=== PATIENT | female | born 1995 | race Caucasian/White ===

== ENCOUNTER → 2017-07-19 | Outpatient (REF) | payer OTHER ==
[~2017-07-19] MED LIST: ACET500C PO; IBUP200C10 PO; IBUP80TA PO; TYLE167L PO; VITAPRTA PO
== END ==
LOC: M LAB REF 16:45
PROVIDERS: ATTEND Advanced Practice Midwife
DX: Z11.3 Encounter for screening for infections with a predominantly sexual mode of transmission (principal)

== ENCOUNTER → 2017-09-05 | Outpatient (REF) | payer OTHER, MEDICAID | LOC: M LAB REF 19:32 | PROVIDERS: ATTEND Physician Assistant | DX: J02.9 Acute pharyngitis, unspecified (principal) ==

== ENCOUNTER → 2017-10-05 | Outpatient (CLI) | payer OTHER | LOC: M RAD 13:41 | DX: R42 Dizziness and giddiness (principal) | CPT/HCPCS: 70551 ==

== ENCOUNTER 2017-10-23 10:45 | Emergency (ER) | payer OTHER | END 2017-10-23 13:38 | disposition home or self-care (01) | LOC: M ED 10:45 | DX: M62.48 Contracture of muscle, other site (principal); R73.09 Other abnormal glucose; J45.909 Unspecified asthma, uncomplicated; Z79.3 Long term (current) use of hormonal contraceptives | CPT/HCPCS: 76775 ==

== ENCOUNTER → 2017-10-26 | Outpatient (CLI) | payer OTHER | LOC: M RAD 16:18 | DX: R10.30 Lower abdominal pain, unspecified (principal) | CPT/HCPCS: 76856 ==

== ENCOUNTER → 2017-12-30 | Outpatient (REF) | payer OTHER, MEDICAID ==
[2017-12-30 12:08] LABS: HEMATOCRIT 44.6 % (36.0-47.0); HEMOGLOBIN 14.5 g/dl (12.0-15.5); MEAN CORPUSCULAR HEMOGLOBIN 29.2 pg (27.0-33.0); MEAN CORPUSCULAR HGB CONC 32.5 g/dl (32.0-36.5); MEAN CORPUSCULAR VOLUME 89.9 fl (80.0-96.0); PLATELET COUNT, AUTOMATED 303 10^3/uL (150-450); RED BLOOD COUNT 4.96 10^6/uL (4.00-5.40); RED CELL DISTRIBUTION WIDTH 12.4 % (11.5-14.5); WHITE BLOOD COUNT 8.1 10^3/uL (4.0-10.0)
[2017-12-30 12:33] LABS: FREE T4 1.17 NG/DL (0.76-1.46); THYROID STIMULATING HORMONE 0.835 uIU/ML (0.358-3.740)
== END ==
LOC: M SFHCCLAY 08:58
DX: R26.89 Other abnormalities of gait and mobility (principal); R53.83 Other fatigue

== ENCOUNTER → 2018-05-18 | Outpatient (REF) | payer OTHER, MEDICAID ==
[2018-05-21 00:06] LABS: Lyme Disease IgG/IgM Antibodie <0.91 ISR (0.00-0.90); Lyme Disease IgM Ab Quantitati <0.80 index (0.00-0.79)
== END ==
LOC: M SFHCCLAY 12:14
DX: R26.89 Other abnormalities of gait and mobility (principal); Z20.9 Contact with and (suspected) exposure to unspecified communicable disease
CPT/HCPCS: 86617

== ENCOUNTER → 2018-06-20 | Outpatient (REF) | payer OTHER ==
[2018-06-20 11:46] LABS: HEMATOCRIT 46.8 % (36.0-47.0); HEMOGLOBIN 15.2 g/dl (12.0-15.5); MEAN CORPUSCULAR HEMOGLOBIN 29.9 pg (27.0-33.0); MEAN CORPUSCULAR HGB CONC 32.5 g/dl (32.0-36.5); MEAN CORPUSCULAR VOLUME 91.9 fl (80.0-96.0); PLATELET COUNT, AUTOMATED 350 10^3/uL (150-450); RED BLOOD COUNT 5.09 10^6/uL (4.00-5.40); WHITE BLOOD COUNT 12.5 10^3/uL (4.0-10.0)
[2018-06-20 11:50] LABS: POSITIVE DIFF POS FLAG
[2018-06-20 11:51] LABS: ADD MANUAL DIFFER YES; DIFF SLIDE NUMBER 252
[2018-06-20 12:09] LABS: ATYPICAL LYMPH 1 % (0-5); EOSINOPHILS 3 % (0-5); LYMPHOCYTES 33 % (16-52); MONOCYTES 8 % (0-8); NEUTROPHILS 55 % (35-75)
[2018-06-20 12:10] LABS: PLATELET ESTIMATE NORMAL (NORMAL)
[2018-06-20 12:15] LABS: ALBUMIN 4.2 GM/DL (3.2-5.2); ALBUMIN/GLOBULIN RATIO 1.08 (1.00-1.93); ALKALINE PHOSPHATASE 65 U/L (45-117); ALT/SGPT 22 U/L (12-78); ANION GAP 10 MEQ/L (8-16); AST/SGOT 10 U/L (7-37); BILIRUBIN,TOTAL 0.9 MG/DL (0.2-1.0); BLOOD UREA NITROGEN 13 MG/DL (7-18); CALCIUM LEVEL 9.1 MG/DL (8.5-10.1); CARBON DIOXIDE LEVEL 25 MEQ/L (21-32); CHLORIDE LEVEL 106 MEQ/L (98-107); CREATININE FOR GFR 0.94 MG/DL (0.55-1.30); GLOMERULAR FILTRATION RATE > 60.0 (>60); GLUCOSE, FASTING 86 MG/DL (70-100); RHEUMATOID FACTOR QUANT < 10.0 IU/ML (<15.0); SODIUM LEVEL 141 MEQ/L (136-145); THYROID STIMULATING HORMONE 0.668 uIU/ML (0.358-3.740); TOTAL PROTEIN 8.1 GM/DL (6.4-8.2)
[2018-06-20 12:24] LABS: ERYTHROCYTE SEDIMENTATION RATE 2 mm/hr (0-20)
[2018-06-20 12:44] LABS: TOTAL 25(OH) VITAMIN D 33.1 NG/ML (30.0-100.0)
[2018-06-20 12:45] LABS: FOLATE 22.1 NG/ML (>5.4)
[2018-06-22 11:29] LABS: ALBUMIN 4.86 GM/DL (3.29-5.55); ALPHA-1-GLOBULIN % 4.2 % (2.9-4.9); ALPHA-1-GLOBULINS 0.34 GM/DL (0.17-0.41); ALPHA-2-GLOBULINS % 10.8 % (7.1-11.8); BETA-1-GLOBULINS % 8.6 % (4.7-7.2); BETA-2-GLOBULINS % 5.1 % (3.2-6.5); GAMMA GLOBULIN % 11.3 % (11.1-18.8)
[2018-06-22 11:30] LABS: ALPHA-2-GLOBULINS 0.87 GM/DL (0.42-0.99); BETA-2-GLOBULINS 0.41 GM/DL (0.19-0.55); GAMMA GLOBULINS 0.92 GM/DL (0.65-1.58)
== END ==
LOC: M LABDRAWC 11:21
DX: R20.0 Anesthesia of skin (principal); G31.84 Mild cognitive impairment of uncertain or unknown etiology
CPT/HCPCS: 82746

== ENCOUNTER → 2018-08-28 | Outpatient (REF) | payer OTHER ==
[2018-08-28 14:40] LABS: CHLAMYDIA DNA AMPLIFICATION NEGATIVE (NEGATIVE); GC DNA AMPLIFICATION NEGATIVE (NEGATIVE)
== END ==
LOC: M LAB REF 12:43
DX: Z11.3 Encounter for screening for infections with a predominantly sexual mode of transmission (principal)
CPT/HCPCS: 87591

== ENCOUNTER → 2018-08-28 | Outpatient (REF) | payer OTHER | LOC: M LAB REF 19:18 | DX: Z12.4 Encounter for screening for malignant neoplasm of cervix (principal) ==

== ENCOUNTER → 2019-07-25 | Outpatient (REF) | payer OTHER, MEDICAID ==
[~2019-07-25] MED LIST changes: -IBUP200C10 PO; +IBUP200C25 PO; +JULE1TAB PO
[2019-07-25 20:11] LABS: CHLAMYDIA DNA AMPLIFICATION NEGATIVE (NEGATIVE); GC DNA AMPLIFICATION NEGATIVE (NEGATIVE)
== END ==
LOC: M LAB REF 17:03
PROVIDERS: ATTEND Advanced Practice Midwife
DX: R10.2 Pelvic and perineal pain (principal)

== ENCOUNTER → 2019-07-31 | Outpatient (CLI) | payer OTHER ==
--- NOTE | 2019-07-31 12:03 | REP ---
Clinical: Pelvic pain . Technique: Transabdominal pelvic ultrasound followed by transvaginal examination for better evaluation of the endometrium and adnexa with color Doppler evaluation of the ovaries. Findings: Bladder is unremarkable and measures 8.9 x 5.1 x 6.4 cm . Heterogeneous anteverted uterus measures 7.5 x 3.7 x 5.3 cm and a 1.5 cm anterior intramural fibroid is suggested. The endometrial complex measures 3.1 mm thickness. Bilateral ovaries are normal in appearance and vascularity without evidence for torsion. Right ovary measures 1.9 x 1.3 x 2.0 cm ; R I = 0.49 . Left ovary measures 2.2 x 1.6 x 1.3 cm ; R I = 0.57 . No pelvic fluid or adnexal mass lesion . Impression: 1. Heterogeneous anteverted uterus with 1.5 cm anterior intramural fibroid Electronically Signed by Robbi Dos Santos MD 07/31/2019 11:55 A
== END ==
LOC: M RAD 11:10
PROVIDERS: ATTEND Advanced Practice Midwife
DX: R10.2 Pelvic and perineal pain (principal)

== ENCOUNTER → 2019-08-02 | Outpatient (REF) | payer MEDICAID, OTHER ==
[2019-08-02 16:46] LABS: BASO # 0.1 10^3/uL (0.0-0.2); BASO % 0.4 % (0.0-1.0); EOS # 0.1 10^3/uL (0.0-0.5); EOS % 0.9 % (0.0-3.0); HEMATOCRIT 41.5 % (36.0-47.0); HEMOGLOBIN 13.4 g/dl (12.0-15.5); LYMPH # 2.4 10^3/uL (1.5-5.0); MEAN CORPUSCULAR HEMOGLOBIN 29.1 pg (27.0-33.0); MEAN CORPUSCULAR HGB CONC 32.3 g/dl (32.0-36.5); MEAN CORPUSCULAR VOLUME 90.2 fl (80.0-96.0); MONO % 8.4 % (0.0-5.0); NEUTROPHILS # 8.4 10^3/uL (1.5-8.5); NEUTROPHILS % 70.1 % (36.0-66.0); PLATELET COUNT, AUTOMATED 336 10^3/uL (150-450)
== END ==
LOC: M SFHCCLAY 12:27
PROVIDERS: ATTEND Family Medicine
DX: D72.829 Elevated white blood cell count, unspecified (principal)

== ENCOUNTER → 2019-09-04 | Outpatient (CLI) | payer OTHER ==
[2019-09-05 08:02] LABS: HCG, SERUM QUALITATIVE NEGATIVE (NEGATIVE)
[2019-09-05 10:09] LABS: HEPATITIS B SURFACE ANTIGEN NEGATIVE (NEGATIVE)
[2019-09-05 10:28] LABS: HEPATITIS C VIRUS ABY INDEX 0.1 INDEX (<0.8)
[2019-09-05 10:29] LABS: HEPATITIS B CORE ANTIBODY IGM NEGATIVE (NEGATIVE); HIV 1&2 SCREEN CENTAUR NEGATIVE (NEGATIVE)
[2019-09-05 10:30] LABS: HEPATITIS A ANTIBODY IGM NEGATIVE (NEGATIVE)
== END ==
LOC: M PLALAB 10:35
PROVIDERS: ATTEND Advanced Practice Midwife
DX: Z11.3 Encounter for screening for infections with a predominantly sexual mode of transmission (principal)

== ENCOUNTER → 2019-10-12 | Outpatient (REF) | payer OTHER | LOC: M SFHCCLAY 14:37 | PROVIDERS: ATTEND Family Medicine | DX: F41.9 Anxiety disorder, unspecified (principal) ==

== ENCOUNTER → 2019-12-05 | Outpatient (REF) | payer OTHER ==
[2019-12-05 11:37] LABS: BASO # 0.1 10^3/uL (0.0-0.2); BASO % 0.5 % (0.0-1.0); EOS # 0.1 10^3/uL (0.0-0.5); EOS % 0.7 % (0.0-3.0); HEMATOCRIT 45.6 % (36.0-47.0); HEMOGLOBIN 14.6 g/dl (12.0-15.5); LYMPH # 4.2 10^3/uL (1.5-5.0); LYMPH % 34.2 % (24.0-44.0); MEAN CORPUSCULAR HEMOGLOBIN 28.7 pg (27.0-33.0); MEAN CORPUSCULAR VOLUME 89.8 fl (80.0-96.0); MONO # 0.7 10^3/uL (0.0-0.8); MONO % 5.6 % (0.0-5.0); NEUTROPHILS # 7.2 10^3/uL (1.5-8.5); NEUTROPHILS % 58.6 % (36.0-66.0); PLATELET COUNT, AUTOMATED 406 10^3/uL (150-450); RED BLOOD COUNT 5.08 10^6/uL (4.00-5.40); WHITE BLOOD COUNT 12.2 10^3/uL (4.0-10.0)
[2019-12-05 11:54] LABS: ALT/SGPT 18 U/L (12-78); BILIRUBIN,TOTAL 0.5 MG/DL (0.2-1.0); BLOOD UREA NITROGEN 14 MG/DL (7-18); CALCIUM LEVEL 9.3 MG/DL (8.5-10.1); CARBON DIOXIDE LEVEL 26 MEQ/L (21-32); CHLORIDE LEVEL 108 MEQ/L (98-107); CREATININE FOR GFR 0.87 MG/DL (0.55-1.30); GLOMERULAR FILTRATION RATE > 60.0 (>60); GLUCOSE, FASTING 91 MG/DL (70-100); POTASSIUM SERUM 3.8 MEQ/L (3.5-5.1); RHEUMATOID FACTOR QUANT < 10.0 IU/ML (<15.0); SODIUM LEVEL 139 MEQ/L (136-145); TOTAL 25(OH) VITAMIN D 17.6 NG/ML (30.0-100.0); TOTAL PROTEIN 7.6 GM/DL (6.4-8.2)
[2019-12-05 12:18] LABS: ERYTHROCYTE SEDIMENTATION RATE 3 mm/hr (0-20)
[2019-12-07 00:08] LABS: ANTINUCLEAR ANTIBODIES DIRECT Negative (Negative)
== END ==
LOC: M LABDRAWC 11:23
PROVIDERS: ATTEND Psychiatry & Neurology Neurology
DX: R51 Headache (principal)

== ENCOUNTER → 2020-04-11 | Outpatient (CLI) | payer OTHER ==
--- NOTE | 2020-04-11 15:14 | REP ---
REASON: Followup. Prior exam 07/31/2019 showed a 1.5 sized anterior uterine fibroid. Transvesical and transvaginal imaging was obtained. The uterus is unchanged in size, shape, and echo pattern measuring approximately 9.2 x 4 x 5.3 cm. The uterine parenchymal echo pattern is heterogeneous, however, the small anterior fibroid seen on the prior exam is not visualized today. The endometrial echo complex is normal measuring 7 mm in thickness. Both ovaries are normal, the right measures 3.1 x 1.4 x 1.8 cm and the left measures 2.8 x 1.8 x 1.9 cm. IMPRESSION: Normal pelvis ultrasound. Electronically Signed by Nish Perez DO 04/11/2020 04:02 P
== END ==
LOC: M WHC 09:57
PROVIDERS: ATTEND Nurse Practitioner Women's Health
DX: R10.2 Pelvic and perineal pain (principal); D25.9 Leiomyoma of uterus, unspecified

== ENCOUNTER → 2020-06-10 | Outpatient (REF) | payer OTHER ==
[2020-06-10 12:55] LABS: BASO # 0.1 10^3/uL (0.0-0.2); BASO % 0.7 % (0.0-1.0); EOS # 0.2 10^3/uL (0.0-0.5); EOS % 1.5 % (0.0-3.0); HEMATOCRIT 46.7 % (36.0-47.0); LYMPH # 3.3 10^3/uL (1.5-5.0); LYMPH % 28.1 % (24.0-44.0); MEAN CORPUSCULAR HEMOGLOBIN 29.8 pg (27.0-33.0); MEAN CORPUSCULAR HGB CONC 32.1 g/dl (32.0-36.5); MEAN CORPUSCULAR VOLUME 92.7 fl (80.0-96.0); MONO # 0.6 10^3/uL (0.0-0.8); MONO % 5.3 % (0.0-5.0); NEUTROPHILS # 7.6 10^3/uL (1.5-8.5); NEUTROPHILS % 64.1 % (36.0-66.0); PLATELET COUNT, AUTOMATED 371 10^3/uL (150-450); RED BLOOD COUNT 5.04 10^6/uL (4.00-5.40); WHITE BLOOD COUNT 11.9 10^3/uL (4.0-10.0)
[2020-06-10 13:09] LABS: ALT/SGPT 20 U/L (12-78); BILIRUBIN,TOTAL 0.5 MG/DL (0.2-1.0); BLOOD UREA NITROGEN 12 MG/DL (7-18); CALCIUM LEVEL 9.1 MG/DL (8.5-10.1); CARBON DIOXIDE LEVEL 25 MEQ/L (21-32); CHLORIDE LEVEL 107 MEQ/L (98-107); CREATININE FOR GFR 0.85 MG/DL (0.55-1.30); GLOMERULAR FILTRATION RATE > 60.0 (>60); GLUCOSE, FASTING 85 MG/DL (70-100); POTASSIUM SERUM 4.6 MEQ/L (3.5-5.1); SODIUM LEVEL 138 MEQ/L (136-145); THYROID STIMULATING HORMONE 0.895 uIU/ML (0.358-3.740); TOTAL 25(OH) VITAMIN D 17.7 NG/ML (30.0-100.0); TOTAL PROTEIN 7.7 GM/DL (6.4-8.2)
== END ==
LOC: M SFHCCLAY 12:19
PROVIDERS: ATTEND Family Medicine
DX: Z00.00 Encounter for general adult medical examination without abnormal findings (principal); M54.16 Radiculopathy, lumbar region; D72.829 Elevated white blood cell count, unspecified; E55.9 Vitamin D deficiency, unspecified

== ENCOUNTER → 2020-07-09 | Outpatient (REF) | payer OTHER ==
[2020-07-09 13:13] LABS: BASO # 0.1 10^3/uL (0.0-0.2); BASO % 0.5 % (0.0-1.0); EOS # 0.2 10^3/uL (0.0-0.5); EOS % 1.7 % (0.0-3.0); HEMOGLOBIN 15.1 g/dl (12.0-15.5); LYMPH % 33.1 % (24.0-44.0); MEAN CORPUSCULAR HEMOGLOBIN 29.8 pg (27.0-33.0); MEAN CORPUSCULAR HGB CONC 32.1 g/dl (32.0-36.5); MEAN CORPUSCULAR VOLUME 92.9 fl (80.0-96.0); MONO # 0.8 10^3/uL (0.0-0.8); MONO % 6.5 % (0.0-5.0); NEUTROPHILS # 6.9 10^3/uL (1.5-8.5); NEUTROPHILS % 57.9 % (36.0-66.0); PLATELET COUNT, AUTOMATED 387 10^3/uL (150-450); RED BLOOD COUNT 5.06 10^6/uL (4.00-5.40)
[2020-07-09 13:35] LABS: TOTAL PROTEIN 7.6 GM/DL (6.4-8.2)
[2020-07-10 14:59] LABS: ALBUMIN % 58.5 % (55.8-66.1); ALPHA-1-GLOBULIN % 5.1 % (2.9-4.9); ALPHA-2-GLOBULINS % 12.2 % (7.1-11.8); BETA-1-GLOBULINS % 8.3 % (4.7-7.2)
[2020-07-10 15:00] LABS: ALBUMIN 4.45 GM/DL (3.29-5.55); ALPHA-1-GLOBULINS 0.39 GM/DL (0.17-0.41); ALPHA-2-GLOBULINS 0.93 GM/DL (0.42-0.99); BETA-1-GLOBULINS 0.63 GM/DL (0.28-0.60); BETA-2-GLOBULINS 0.44 GM/DL (0.19-0.55); BETA-2-GLOBULINS % 5.8 % (3.2-6.5); GAMMA GLOBULIN % 10.1 % (11.1-18.8); GAMMA GLOBULINS 0.77 GM/DL (0.65-1.58)
== END ==
LOC: M SFHCCLAY 07:50
PROVIDERS: ATTEND Family Medicine
DX: D72.829 Elevated white blood cell count, unspecified (principal); D89.2 Hypergammaglobulinemia, unspecified

== ENCOUNTER → 2020-10-22 | Outpatient (REF) | payer OTHER | LOC: M SFHCWAGY 13:17 | PROVIDERS: ATTEND Advanced Practice Midwife | DX: Z12.4 Encounter for screening for malignant neoplasm of cervix (principal) ==

== ENCOUNTER → 2021-02-12 | Outpatient (REF) | payer OTHER ==
[2021-02-12 16:18] LABS: BASO # 0.1 10^3/uL (0.0-0.2); BASO % 0.5 % (0.0-1.0); EOS # 0.1 10^3/uL (0.0-0.5); EOS % 0.9 % (0.0-3.0); HEMATOCRIT 42.9 % (36.0-47.0); HEMOGLOBIN 14.1 g/dl (12.0-15.5); LYMPH # 3.3 10^3/uL (1.5-5.0); MEAN CORPUSCULAR HEMOGLOBIN 30.9 pg (27.0-33.0); MEAN CORPUSCULAR HGB CONC 32.9 g/dl (32.0-36.5); MEAN CORPUSCULAR VOLUME 93.9 fl (80.0-96.0); MONO # 0.9 10^3/uL (0.0-0.8); MONO % 7.1 % (2.0-8.0); NEUTROPHILS # 7.8 10^3/uL (1.5-8.5); NEUTROPHILS % 64.1 % (36.0-66.0); PLATELET COUNT, AUTOMATED 347 10^3/uL (150-450); RED BLOOD COUNT 4.57 10^6/uL (4.00-5.40); WHITE BLOOD COUNT 12.2 10^3/uL (4.0-10.0)
[2021-02-12 16:27] LABS: ALBUMIN 3.8 GM/DL (3.2-5.2); ALT/SGPT 23 U/L (12-78); BILIRUBIN,TOTAL 0.4 MG/DL (0.2-1.0); BLOOD UREA NITROGEN 12 MG/DL (7-18); CALCIUM LEVEL 9.6 MG/DL (8.5-10.1); CARBON DIOXIDE LEVEL 25 MEQ/L (21-32); CHLORIDE LEVEL 106 MEQ/L (98-107); CREATININE FOR GFR 0.76 MG/DL (0.55-1.30); GLOMERULAR FILTRATION RATE > 60.0 (>60); GLUCOSE, FASTING 88 MG/DL (70-100); POTASSIUM SERUM 4.3 MEQ/L (3.5-5.1); SODIUM LEVEL 139 MEQ/L (136-145); TOTAL PROTEIN 7.2 GM/DL (6.4-8.2)
[2021-02-12 16:42] LABS: TOTAL 25(OH) VITAMIN D 35.5 NG/ML (30.0-100.0)
== END ==
LOC: M SFHCCLAY 10:23
PROVIDERS: ATTEND Family Medicine
DX: F41.9 Anxiety disorder, unspecified (principal); D72.821 Monocytosis (symptomatic); E55.9 Vitamin D deficiency, unspecified

== ENCOUNTER → 2021-04-07 | Outpatient (CLI) | payer OTHER ==
[2021-04-07 10:19] LABS: HEMOGLOBIN A1c 5.5 %
== END ==
LOC: M LAB 08:42
PROVIDERS: ATTEND Advanced Practice Midwife
DX: R63.5 Abnormal weight gain (principal)

== ENCOUNTER → 2021-08-17 | Outpatient (CLI) | payer OTHER ==
--- NOTE | 2021-08-18 19:48 | REP ---
INDICATION: Left breast lump COMPARISON: Left breast ultrasound, 01/29/2021. TECHNIQUE: Targeted ultrasound evaluation of the left breast was performed. FINDINGS: Left breast: 1 o'clock, 9 cm from the nipple, 7 x 6 x 5 mm (was 6 x 5 x 4 mm, oval, parallel, circumscribed, hypoechoic mass with posterior enhancement. 31.8 KPA. IMPRESSION: Stable subcutaneous nodule in the left breast. BI-RADS category 3: Probably benign. RECOMMENDATION: Six-month follow-up ultrasound evaluation of the left breast. <Electronically signed by Kal Hickey > 08/18/211943
== END ==
LOC: M WHC 10:55
PROVIDERS: ATTEND Obstetrics & Gynecology
DX: N63.20 Unspecified lump in the left breast, unspecified quadrant (principal)

== ENCOUNTER → 2021-11-11 | Outpatient (CLI) | payer OTHER ==
[2021-11-11 13:10] LABS: BASO % 0.3 % (0.0-1.0); EOS # 0.1 10^3/uL (0.0-0.5); EOS % 1.1 % (0.0-3.0); HEMATOCRIT 40.8 % (36.0-47.0); HEMOGLOBIN 13.3 g/dl (12.0-15.5); LYMPH # 2.8 10^3/uL (1.5-5.0); LYMPH % 23.2 % (24.0-44.0); MEAN CORPUSCULAR HEMOGLOBIN 29.4 pg (27.0-33.0); MEAN CORPUSCULAR HGB CONC 32.6 g/dl (32.0-36.5); MEAN CORPUSCULAR VOLUME 90.1 fl (80.0-96.0); MONO % 8.2 % (2.0-8.0); NEUTROPHILS # 8.1 10^3/uL (1.5-8.5); NEUTROPHILS % 66.8 % (36.0-66.0); PLATELET COUNT, AUTOMATED 343 10^3/uL (150-450); RED BLOOD COUNT 4.53 10^6/uL (4.00-5.40); WHITE BLOOD COUNT 12.1 10^3/uL (4.0-10.0)
[2021-11-11 14:30] LABS: HIV 1&2 SCREEN CENTAUR NEGATIVE (NEGATIVE)
[2021-11-11 14:36] LABS: GC DNA AMPLIFICATION NEGATIVE (NEGATIVE)
== END ==
LOC: M PLALAB 09:48
PROVIDERS: ATTEND Obstetrics & Gynecology
DX: Z34.81 Encounter for supervision of other normal pregnancy, first trimester (principal); Z3A.08 8 weeks gestation of pregnancy

== ENCOUNTER → 2022-01-26 | Outpatient (CLI) | payer OTHER | LOC: M WHC 11:11 | PROVIDERS: ATTEND Obstetrics & Gynecology | DX: Z34.92 Encounter for supervision of normal pregnancy, unspecified, second trimester (principal); Z3A.19 19 weeks gestation of pregnancy; N63.21 Unspecified lump in the left breast, upper outer quadrant ==

== ENCOUNTER → 2022-02-10 | Outpatient (REF) | payer OTHER | LOC: M SFHCWAGY 12:55 | PROVIDERS: ATTEND Surgery | DX: L72.0 Epidermal cyst (principal); N63.20 Unspecified lump in the left breast, unspecified quadrant ==

== ENCOUNTER → 2022-03-30 | Outpatient (CLI) | payer OTHER | LOC: M LAB 08:18 | PROVIDERS: ATTEND Obstetrics & Gynecology | DX: Z34.81 Encounter for supervision of other normal pregnancy, first trimester (principal); Z3A.00 Weeks of gestation of pregnancy not specified ==

== ENCOUNTER → 2022-05-18 | Outpatient (CLI) | payer OTHER | LOC: M WHC 09:45 | PROVIDERS: ATTEND Obstetrics & Gynecology | DX: O24.410 Gestational diabetes mellitus in pregnancy, diet controlled (principal); Z3A.35 35 weeks gestation of pregnancy ==

== ENCOUNTER → 2022-05-19 | Outpatient (REF) | payer OTHER | LOC: M PLALAB 10:07 | PROVIDERS: ATTEND Specialist | DX: Z34.83 Encounter for supervision of other normal pregnancy, third trimester (principal) ==

== ENCOUNTER 2022-06-12 20:54 | Inpatient (IN) | payer OTHER ==
[~2022-06-12] VITALS: Ht 165.1 cm; Wt 93.2 kg
[2022-06-12] VITALS (13 sets, daily range): BP systolic 105–149; BP diastolic 54–81
[2022-06-12] MEDS ORDERED: LACTATED RINGER'S 1000 ML IV STA (21:24)
[2022-06-12] MEDS ORDERED: LR 1,000 ML IV SCH (21:25)
[2022-06-12 22:01] LABS: HEMATOCRIT 38.7 % (36.0-47.0); HEMOGLOBIN 12.8 g/dl (12.0-15.5); MEAN CORPUSCULAR HEMOGLOBIN 28.5 pg (27.0-33.0); MEAN CORPUSCULAR HGB CONC 33.1 g/dl (32.0-36.5); MEAN CORPUSCULAR VOLUME 86.2 fl (80.0-96.0); PLATELET COUNT, AUTOMATED 233 10^3/uL (150-450); RED BLOOD COUNT 4.49 10^6/uL (4.00-5.40); WHITE BLOOD COUNT 14.4 10^3/uL (4.0-10.0)
[2022-06-12] MEDS ORDERED: FENTANYL 2MCG/ML ROPIVACAINE 0.2% IN 0.9% NACL 100ML IVBAG As Ordered ONE (22:33)
[2022-06-12] MEDS ORDERED: LR 500 ML IV PRN (23:30)
[2022-06-12] MEDS ORDERED: NALOXONE INJ 0.4MG/1ML VIAL (J2310 PER 1MG) IV PRN (23:30)
[2022-06-12] MEDS ORDERED: EPIDURAL/PCA KEYS XX PRN (23:30)
[2022-06-12] MEDS ORDERED: FENTANYL/ROPIVACAINE/NACL BAG 100 ML EPIDURAL SCH (23:30)
[2022-06-12] MEDS ORDERED: diphenhydrAMINE 50MG/ML VIAL (J1200) IV PRN (23:30)
[2022-06-12] MEDS ORDERED: ePHEDrine SULFATE 25 MG/5 ML(5MG/ML) SYRINGE IVP PRN (23:30)
[2022-06-12] MEDS ORDERED: ONDANSETRON 4MG 2ML VIAL IV PRN (23:30)
[2022-06-13] VITALS (19 sets, daily range): BP systolic 104–151; BP diastolic 53–98
[2022-06-13] MEDS ORDERED: OXYTOCIN DRIP 30 UNITS in IV 1 EA IV STA (03:46)
[2022-06-13] MEDS ORDERED: IBUPROFEN 800 MG TAB PO PRN (04:20)
[2022-06-13] MEDS ORDERED: OXYTOCIN DRIP 30 UNITS in IV 1 EA IV ONE (04:20)
[2022-06-13] MEDS ORDERED: IBUPROFEN 600MG TAB PO PRN (04:20)
[2022-06-13] MEDS ORDERED: DIBUCAINE 1% OINTMENT 30GM TOP PRN (04:20)
[2022-06-13] MEDS ORDERED: RHOGAM 300 MCG (1500 IU) INJ (J2790) IM SCH (04:20)
[2022-06-13] MEDS ORDERED: METHYLERGONOVINE MALEATE 0.2 MG TAB PO PRN (04:20)
[2022-06-13] MEDS ORDERED: ACETAMINOPHEN 500 MG TAB PO PRN (04:20)
[2022-06-13] MEDS ORDERED: ACETAMINOPHEN TAB 650MG DOSE (2X325MG) PO PRN (04:20)
[2022-06-13] MEDS ORDERED: DOCUSATE SODIUM 100MG CAPSULE PO PRN (04:20)
[2022-06-13] MEDS: PRENATAL VITAMINS CHEWABLE TABLET PO SCH (08:19)
[2022-06-14 06:00] VITALS: BP 97/52
[2022-06-14] MEDS: PRENATAL VITAMINS CHEWABLE TABLET PO SCH (07:58)
[2022-06-14] MEDS ORDERED: ACET-683 PO (11:21)
[2022-06-14] MEDS ORDERED: IBUP80TA PO (11:21)
[2022-06-15] MEDS ORDERED: MEASLES,MUMPS,RUBELLA VACCINE INJ (MMR-II) (90707) SC.IMMUN ONE (09:00)
== END 2022-06-14 13:00 | disposition home or self-care (01) | DRG 560 ==
LOC: M LDO 20:54 → M LDI 21:21 → M OBS 06-13 06:21
PROVIDERS: ADMIT Specialist; ATTEND Specialist
PROC: 10E0XZZ Delivery of Products of Conception, External Approach (ICD-10-PCS; principal; 2022-06-13)
PROC: 0HQ9XZZ Repair Perineum Skin, External Approach (ICD-10-PCS; 2022-06-13)
DX: O69.82X0 Labor and delivery complicated by other cord entanglement, without compression, not applicable or unspecified (principal); Z37.0 Single live birth; Z3A.39 39 weeks gestation of pregnancy; O70.0 First degree perineal laceration during delivery

== ENCOUNTER → 2022-12-06 | Outpatient (REF) | payer OTHER ==
[~2022-12-06] MED LIST changes: +ACET-683 PO
== END ==
LOC: M SFHCWAGY 13:20
PROVIDERS: ATTEND Specialist
DX: Z01.419 Encounter for gynecological examination (general) (routine) without abnormal findings (principal)

== ENCOUNTER → 2023-11-15 | Outpatient (REF) | payer BC, OTHER ==
[2023-11-15 12:03] LABS: BASO % 0.4 % (0.0-1.0); EOS % 0.5 % (0.0-3.0); HEMATOCRIT 46.3 % (36.0-47.0); HEMOGLOBIN 15.1 g/dl (12.0-15.5); LYMPH # 2.7 10^3/uL (1.5-5.0); LYMPH % 34.3 % (24.0-44.0); MEAN CORPUSCULAR HEMOGLOBIN 30.9 pg (27.0-33.0); MEAN CORPUSCULAR HGB CONC 32.6 g/dl (32.0-36.5); MEAN CORPUSCULAR VOLUME 94.9 fl (80.0-96.0); MONO # 0.5 10^3/uL (0.0-0.8); MONO % 5.9 % (2.0-8.0); NEUTROPHILS # 4.6 10^3/uL (1.5-8.5); NEUTROPHILS % 58.6 % (36.0-66.0); PLATELET COUNT, AUTOMATED 287 10^3/uL (150-450); RED BLOOD COUNT 4.88 10^6/uL (4.00-5.40); WHITE BLOOD COUNT 7.9 10^3/uL (4.0-10.0)
[2023-11-15 12:13] LABS: ERYTHROCYTE SEDIMENTATION RATE 9 mm/hr (0-20)
[2023-11-15 12:34] LABS: C REACTIVE PROTEIN QUANTITATIV < 0.40 MG/DL (<1.0)
[2023-11-15 12:35] LABS: ALBUMIN 4.5 G/DL (3.2-5.2); ALKALINE PHOSPHATASE 63 U/L (46-116); ALT/SGPT 18 U/L (7.0-40); AST/SGOT < 8 U/L (<34); BILIRUBIN,TOTAL 1.1 MG/DL (0.3-1.2); BLOOD UREA NITROGEN 13 MG/DL (9-23); CALCIUM LEVEL 9.3 MG/DL (8.5-10.1); CARBON DIOXIDE LEVEL 26 MMOL/L (20-31); CHLORIDE LEVEL 107 MMOL/L (98-107); CHOLESTEROL LEVEL 177 MG/DL (<200); CHOLESTEROL RISK RATIO 2.04 (<5); CREATININE FOR GFR 0.67 MG/DL (0.55-1.30); GLOMERULAR FILTRATION RATE > 60.0 (>60); GLUCOSE, FASTING 80 MG/DL (60-100); HDL CHOLESTEROL 86.4 MG/DL (>40); NON-HDL-C 90.6 MG/DL; POTASSIUM SERUM 4.6 MMOL/L (3.5-5.1); SODIUM LEVEL 139 MMOL/L (136-145); TOTAL PROTEIN 7.3 G/DL (5.7-8.2); TRIGLYCERIDES LEVEL 48 MG/DL (<150)
[2023-11-15 12:36] LABS: THYROID STIMULATING HORMONE 0.791 uIU/ML (0.55-4.78)
[2023-11-16 19:11] LABS: ANA (HEP2) Positive (.)
== END ==
LOC: M SFHCCLAY 09:23
PROVIDERS: ATTEND Family Medicine
DX: Z00.00 Encounter for general adult medical examination without abnormal findings (principal); R53.82 Chronic fatigue, unspecified; K58.0 Irritable bowel syndrome with diarrhea; D72.829 Elevated white blood cell count, unspecified

== ENCOUNTER → 2024-06-14 | Outpatient (CLI) | payer BC ==
[2024-06-14 14:35] LABS: HEMATOCRIT 38.8 % (36.0-47.0); HEMOGLOBIN 12.9 g/dl (12.0-15.5); MEAN CORPUSCULAR HEMOGLOBIN 31.5 pg (27.0-33.0); MEAN CORPUSCULAR HGB CONC 33.2 g/dl (32.0-36.5); MEAN CORPUSCULAR VOLUME 94.9 fl (80.0-96.0); PLATELET COUNT, AUTOMATED 262 10^3/uL (150-450); RED BLOOD COUNT 4.09 10^6/uL (4.00-5.40)
[2024-06-14 15:09] LABS: HIV 1&2 SCREEN NEGATIVE (NEGATIVE)
[2024-06-14 15:18] LABS: HEPATITIS C VIRUS ABY INDEX < 0.02 INDEX (<0.8)
[2024-06-14 15:48] LABS: GC DNA AMPLIFICATION NEGATIVE (NEGATIVE)
== END ==
LOC: M PLALAB 09:36
PROVIDERS: ATTEND Specialist
DX: Z34.81 Encounter for supervision of other normal pregnancy, first trimester (principal); Z3A.00 Weeks of gestation of pregnancy not specified

== ENCOUNTER → 2024-06-14 | Outpatient (REF) | payer BC | LOC: M PLALAB 09:15 | PROVIDERS: ATTEND Specialist | DX: Z34.81 Encounter for supervision of other normal pregnancy, first trimester (principal) ==

== ENCOUNTER → 2024-08-24 | Outpatient (CLI) | payer BC | LOC: M RAD 10:53 | PROVIDERS: ATTEND Advanced Practice Midwife | DX: Z34.82 Encounter for supervision of other normal pregnancy, second trimester (principal); Z3A.21 21 weeks gestation of pregnancy ==

== ENCOUNTER → 2024-09-21 | Outpatient (CLI) | payer BC | LOC: M WHC 09:39 | PROVIDERS: ATTEND Obstetrics & Gynecology | DX: O32.1XX0 Maternal care for breech presentation, not applicable or unspecified (principal); Z3A.24 24 weeks gestation of pregnancy ==

== ENCOUNTER → 2024-10-10 | Outpatient (CLI) | payer BC ==
[2024-10-10 14:15] LABS: HEMATOCRIT 37.6 % (36.0-47.0); HEMOGLOBIN 12.4 g/dl (12.0-15.5); MEAN CORPUSCULAR HEMOGLOBIN 30.8 pg (27.0-33.0); MEAN CORPUSCULAR VOLUME 93.5 fl (80.0-96.0); PLATELET COUNT, AUTOMATED 215 10^3/uL (150-450); RED BLOOD COUNT 4.02 10^6/uL (4.00-5.40); WHITE BLOOD COUNT 12.8 10^3/uL (4.0-10.0)
[2024-10-10 14:16] LABS: GLUCOSE CHALLENGE TEST 1 HOUR 116 MG/DL (LESS THAN 140)
[2024-10-10 14:51] LABS: HIV 1&2 SCREEN NEGATIVE (NEGATIVE)
[2024-10-10 14:59] LABS: HEPATITIS C VIRUS ABY INDEX < 0.02 INDEX (<0.8)
== END ==
LOC: M PLALAB 08:34
PROVIDERS: ATTEND Obstetrics & Gynecology
DX: Z34.92 Encounter for supervision of normal pregnancy, unspecified, second trimester (principal); Z3A.00 Weeks of gestation of pregnancy not specified
CPT/HCPCS: 36415; 82950; 85027; 86780; 86803; 86850; 86900; 86901; 87389; J2790

== ENCOUNTER → 2024-12-12 | Outpatient (REF) | payer OTHER | LOC: M SFHCWAGY 10:14 | PROVIDERS: ATTEND Obstetrics & Gynecology | DX: Z36.85 Encounter for antenatal screening for Streptococcus B (principal); Z3A.36 36 weeks gestation of pregnancy ==

== ENCOUNTER → 2025-06-05 | Outpatient (REF) | payer BC ==
[~2025-06-05] MED LIST changes: +PRENTAB9 PO
== END ==
LOC: M PLALAB 10:32
PROVIDERS: ATTEND Advanced Practice Midwife
DX: L91.8 Other hypertrophic disorders of the skin (principal)